=== PATIENT | female | born 1975 | race Caucasian/White ===

== ENCOUNTER 2019-12-03 10:23 | Outpatient (CLI) | payer BC, SELFPAY | END 2019-12-03 10:24 | disposition home or self-care (01) | LOC: ANHAUDIO 10:25 | PROVIDERS: PCP Family Medicine; Visit Provider Otolaryngology | DX: H69.80 Other specified disorders of Eustachian tube, unspecified ear (principal) | CPT/HCPCS: 92557; 92567 ==